=== PATIENT | male | born 1940 | race Hispanic/Latino ===

== ENCOUNTER 2017-10-05 08:20 | Day surgery (SDC) | payer MEDICARE, BC ==
[2017-09-27 11:34] VITALS: BMI 23.4
[2017-10-05] MEDS ORDERED: Propofol 10 mg/ml Inj (20 ML) ONE (10:31)
[2017-10-05] MEDS ORDERED: Sodium Chloride 0.9% 1,000 ML IV SCH (11:30)
[2017-10-05 12:47] VITALS: BP 111/65; PULSE 54; RESP 16; TEMP 97.7; O2SAT 99
== END 2017-10-05 13:00 | disposition home or self-care (01) ==
LOC: ENDO 08:20
PROVIDERS: ATTEND Internal Medicine Gastroenterology
DX: K29.50 Unspecified chronic gastritis without bleeding (principal); K44.9 Diaphragmatic hernia without obstruction or gangrene; K64.8 Other hemorrhoids; K57.30 Diverticulosis of large intestine without perforation or abscess without bleeding; R63.4 Abnormal weight loss; Z12.11 Encounter for screening for malignant neoplasm of colon; C61 Malignant neoplasm of prostate; Z86.010 Personal history of colon polyps; I10 Essential (primary) hypertension; J45.909 Unspecified asthma, uncomplicated
CPT/HCPCS: 43239; 45378; 88305; 88342; J2704; J7040 ×2; J7120